=== PATIENT | male | born 1960 | race Caucasian/White ===

== ENCOUNTER 2021-01-24 05:23 | Emergency (ER) | payer OTHER ==
[2021-01-24 06:14] LABS: BASOPHIL 0.2 % (0-2); EOSINOPHIL 0.6 % (0-5); HCT 41.4 % (42.0-52.0); HGB 14.2 g/dl (13.2-18.0); LYMPHOCYTE 13.1 % (15-48); MCH 30.8 pg (25.0-31.0); MCHC 34.3 g/dL (32.0-36.0); MCV 89.8 fL (78.0-100.0); MONOCYTE 9.9 % (0-12); MPV 8.7 fL (6.0-9.5); NEUTROPHIL 75.8 % (41-80); NRBC 0; PLT 201 K/uL (150-400); RBC 4.61 M/uL (4.70-6.00); RDW 12.6 % (11.5-14.0); WBC 9.3 K/uL (4.0-10.5)
[2021-01-24 06:33] LABS: ALBUMIN 3.6 g/dL (3.4-5.0); BILIRUBIN - TOTAL 0.9 mg/dL (0.2-1.0); BUN/CREAT RATIO (CALC) 11.9 RATIO; C-REACTIVE PROTEIN 5.1 mg/dL (<=0.90); CREATININE 1.09 mg/dL (0.67-1.17); GLOBULIN (CALCULATION) 4.3 g/dL; POTASSIUM 4.2 mmol/L (3.5-5.1); TOTAL PROTEIN 7.9 g/dL (6.4-8.2)
[2021-01-24] MEDS ORDERED: MEDROL 4MG DOSEP4 MG PO (08:55)
== END 2021-01-24 09:10 | disposition home or self-care (01) ==
LOC: FER 05:23
PROVIDERS: Emergency Medicine; Emergency Medicine Emergency Medical Services
DX: M79.10 Myalgia, unspecified site (principal); R79.82 Elevated C-reactive protein (CRP)
CPT/HCPCS: 36415; 71045; 71275; 80053; 82550; 84484; 84550; 85025; 85379; 86038; 86140; 86431; J1100; J1170; J1885; J2405; J7120; Q9967